=== PATIENT | male | born 1995 | race Caucasian/White ===

== ENCOUNTER 2017-06-16 04:04 | Emergency (ER) | payer MEDICAID ==
[2017-06-16] MEDS: LIDOCAINE 1% (MDV) 20 ML INJ SC (05:23)
== END 2017-06-16 06:40 | disposition home or self-care (01) ==
LOC: FTE 04:04
DX: L02.211 Cutaneous abscess of abdominal wall (principal)
CPT/HCPCS: 10061; 99283-25